=== PATIENT | male | born 1980 | race Caucasian/White ===

== ENCOUNTER 2020-09-16 21:47 | Emergency (ER) | payer SELFPAY ==
[~2020-09-16] VITALS: Ht 170.2 cm; Wt 72.6 kg
[2020-09-17] MEDS ORDERED: IBUPROFEN 800 MG TAB PO ONE (00:30)
[2020-09-17 02:33] VITALS: BP 150/96
== END 2020-09-17 02:33 | disposition home or self-care (01) ==
LOC: ER 21:53
DX: L03.011 Cellulitis of right finger (principal); L60.0 Ingrowing nail